=== PATIENT | male | born 1970 | race Caucasian/White ===

== ENCOUNTER 2018-10-16 20:12 | Emergency (ER) | payer OTHER ==
[~2018-10-16] VITALS: Ht 182.9 cm; Wt 88.9 kg
[2018-10-16 20:39] VITALS: Ht 182.9 cm; Wt 88.9 kg
[2018-10-16 23:31] VITALS: BP 119/80
== END 2018-10-16 23:31 | disposition home or self-care (01) ==
LOC: ED 20:12
DX: S20.211A Contusion of right front wall of thorax, initial encounter (principal); V18.0XXA Pedal cycle driver injured in noncollision transport accident in nontraffic accident, initial encounter; Y92.828 Other wilderness area as the place of occurrence of the external cause; Y99.8 Other external cause status